=== PATIENT | male | born 1985 | race Caucasian/White ===

== ENCOUNTER 2018-01-05 06:16 | Emergency (ER) | payer MEDICAID ==
[2018-01-05 06:18] VITALS: BP 135/90
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
== END 2018-01-05 07:50 | disposition home or self-care (01) ==
LOC: VM.ED 06:16
DX: S09.90XA Unspecified injury of head, initial encounter (principal); Y09 Assault by unspecified means; Z79.899 Other long term (current) drug therapy
CPT/HCPCS: 70450; 72125; 99284

== ENCOUNTER 2018-01-10 10:19 | Emergency (ER) | payer MEDICAID ==
[2018-01-10 10:36] VITALS: BP 108/53
[2018-01-10] MEDS ORDERED: Lidocaine 1% with EPINEPHrine 1:100,000 20 ML MDV INFILT ONE (10:51)
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
[2018-01-10] MEDS ORDERED: cefTRIAXone 1 GM Vial IM ONE (11:13)
[2018-01-10] MEDS ORDERED: traMADol 50 MG Tab PO ONE (11:13)
[2018-01-10] MEDS ORDERED: Take Home: traMADol 50 MG, 4 Tab Pack PO ONE (11:17)
[2018-01-10] MEDS ORDERED: Sulfamethoxazole/Trimethoprim 400-80 MG Tab PO ONE (11:18)
[2018-01-10] MEDS ORDERED: Take Home: Sulfamethoxazole/Trimethoprim 800-160 MG Tab, 2 Tab Pack PO ONE (11:19)
[2018-01-10] MEDS ORDERED: Vancomycin 2 GM in Sodium Chloride 0.9% 500 ML IV ONE (11:49)
[2018-01-10 12:54] LABS: CHLORIDE,CL 104 mmol/L (98-107); SODIUM,NA 140 mmol/L (136-145)
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
== END 2018-01-10 14:06 | disposition short-term general hospital (02) ==
LOC: VM.ED 10:19
DX: L03.115 Cellulitis of right lower limb (principal); F41.9 Anxiety disorder, unspecified; F17.210 Nicotine dependence, cigarettes, uncomplicated; Z79.899 Other long term (current) drug therapy
CPT/HCPCS: 10060; 36415; 73560; 73610; 80053; 83605; 85025; 86140; 87040; 87070; 87077; 87205; 96365; 96366; 99284; A9270; J0696; J3370; J7040

== ENCOUNTER 2018-01-12 22:35 | Emergency (ER) | payer MEDICAID ==
[2018-01-12] MEDS ORDERED: Sulfamethoxazole/Trimethoprim 800-160 MG Tab PO ONE (23:12)
[2018-01-12] MEDS ORDERED: Ondansetron 4 MG Tab.DIS PO ONE (23:13)
--- NOTE | 2018-01-12 23:19 | EDM.PDOC ---
ED HPI GENERAL MEDICAL PROBLEM - General Chief Complaint: Headache Stated Complaint: headache, nausea, photosensitivity, possible adverse drug reaction Time Seen by Provider: 01/12/18 22:52 Source of Information: Reports: Patient History Limitations: Reports: No Limitations - History of Present Illness INITIAL COMMENTS - FREE TEXT/NARRATIVE: Patient arrives with complaints of headache, light sensitivity, nausea, vomiting , dry mouth, chills and dizziness about 30 minutes after taking a doxycycline he was prescribed today. Patient was seen in this ED on the 2 days ago. He was transferred to [place] to rule out septic arthritis. Patient was discharged today from [facility] in [place] and started on oral Doxycycline. He took this about 1 1/2 hours ago for the first time. He is being treated for cellulitis of the right leg. He denies chest pain or shortness of breath. Onset: Today Onset Date: 01/12/18 Onset Time: 21:00 Location: Reports: Head Associated Symptoms: Reports: Headaches, Nausea/Vomiting - Related Data Allergies Allergy/AdvReac Type Severity Reaction Status Date / Time doxycycline Allergy Headache Verified 01/12/18 23:24 Home Meds: Home Meds Doxycycline [Vibramycin] 100 mg PO BID 01/12/18 [History] Naproxen 375 mg PO BID 01/12/18 [History] Past Medical History - Past Surgical History HEENT Surgical History: Reports: Other (See Below), Oral Surgery GI Surgical History: Reports: Hernia, Inguinal Social & Family History - Tobacco Use Smoking Status *Q: Unknown Ever Smoked Years of Tobacco use: 16 Packs/Tins Daily: 1 - Recreational Drug Use Recreational Drug Use: Yes Drug Use in Last 12 Months: Yes Recreational 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, Methamphetamine ED ROS GENERAL - Review of Systems Review Of Systems: See Below Constitutional: Reports: Chills HEENT: Reports: No Symptoms, Other (light sensitivity, dry mouth) Respiratory: Reports: No Symptoms Cardiovascular: Reports: No Symptoms Endocrine: Reports: No Symptoms GI/Abdominal: Reports: Nausea, Vomiting Musculoskeletal: Reports: No Symptoms Skin: Reports: No Symptoms Neurological: Reports: Dizziness Psychiatric: Reports: No Symptoms, Anxiety Hematologic/Lymphatic: Reports: No Symptoms Immunologic: Reports: No Symptoms - Physical Exam Exam: See Below Exam Limited By: No Limitations General Appearance: Alert, WD/WN, No Apparent Distress, Anxious Eye Exam: Bilateral Eye: EOMI, Normal Fundi, Normal Inspection Ears: Normal External Exam, Normal Canal, Hearing Grossly Normal, Normal TMs Nose: Normal Inspection, Normal Mucosa, No Blood Throat/Mouth: Normal Inspection, Normal Lips, Normal Teeth, Normal Gums, Normal Oropharynx, Normal Voice, No Airway Compromise Head Exam: Atraumatic, Normocephalic Neck: Normal Inspection, Supple, Non-Tender, Full Range of Motion Respiratory/Chest: No Respiratory Distress, Lungs Clear, Normal Breath Sounds, No Accessory Muscle Use, Chest Non-Tender Cardiovascular: Normal Peripheral Pulses, Regular Rate, Rhythm, No Edema, No Gallop, No JVD, No Murmur, No Rub GI/Abdominal: Normal Bowel Sounds, Soft, Non-Tender, No Organomegaly, No Distention, No Abnormal Bruit, No Mass Neuro Exam (Abbreviated): Alert, Oriented, CN II-XII Intact, Normal Cognition, Normal Gait, Normal Reflexes, No Motor/Sensory Deficits Extremities: Normal Inspection, Normal Range of Motion, Normal Capillary Refill Psychiatric: Anxious Skin Exam: Warm, Dry, Intact, Normal Color, No Rash, Erythema (right lower extremity), Tattoo(s) (multiple), Other (Slight erythema noted to right leg. 1+ pitting edema noted to the right lower extremity, however, patient does state this is improved from previous. Bilateral pedal pulses +2. ) Course - Vital Signs Last Recorded V/S: Last Vital Signs Temp 35.1 C L 01/12/18 22:35 Pulse 63 01/12/18 22:35 Resp 28 H 01/12/18 22:35 BP 136/83 01/12/18 22:35 Pulse Ox 100 01/12/18 22:35 - Orders/Labs/Meds Meds: Medications Discontinued Medications Generic Name Dose Route Start Last Admin Trade Name Freq PRN Reason Stop Dose Admin Ondansetron HCl 4 mg 01/12/18 23:13 01/12/18 23:31 Zofran Odt PO 01/12/18 23:14 4 mg ONETIME ONE Administration Trimethoprim/Sulfamethoxazole 2 tab 01/12/18 23:12 01/12/18 23:42 Septra Ds PO 01/12/18 23:13 2 tab ONETIME ONE Administration - Re-Assessments/Exams Free Text/Narrative Re-Assessment/Exam: 01/13/18 01:11 adverse reaction to doxycycline. started on bactrim ds Departure - Departure Time of Disposition: 23:05 Disposition: Home, Self-Care 01 Condition: Good Clinical Impression: Adverse drug reaction - Discharge Information Instructions: Sulfamethoxazole; Trimethoprim, SMX-TMP tablets Referrals: Andrew Thao MD [Primary Care Provider] - Forms: ED Department Discharge Additional Instructions: You appear to have had an allergic reaction to the doxycycline. Let your other medical providers know this. I prescribed Bactrim for you this evening. Take 2 tablets twice daily for 10 days. Please finish these even if you are feeling better. Stay well hydrated. If you have any questions or concerns, please call us at the hospital at any time. - Problem List & Annotations (1) Cellulitis SNOMED Code(s): 240923622 Code(s): L03.90 - CELLULITIS, UNSPECIFIED Status: Acute Priority: Medium Current Visit: No Qualifiers: Site of cellulitis: extremity Site of cellulitis of extremity: lower extremity Laterality: right Qualified Code(s): L03.115 - Cellulitis of right lower limb - Problem List Review Problem List Initiated/Reviewed/Updated: Yes - Assessment/Plan Assessment:: Adverse drug reaction Plan: You appear to have had an allergic reaction to the doxycycline. Let your other medical providers know this. I prescribed Bactrim for you this evening. Take 2 tablets twice daily for 10 days. Please finish these even if you are feeling better. Stay well hydrated. If you have any questions or concerns, please call us at the hospital at any time.
[2018-01-12 23:22] VITALS: BP 136/83
== END 2018-01-13 00:08 | disposition home or self-care (01) ==
LOC: VM.ED 22:35
DX: G44.40 Drug-induced headache, not elsewhere classified, not intractable (principal); R11.2 Nausea with vomiting, unspecified; R42 Dizziness and giddiness; T36.4X5A Adverse effect of tetracyclines, initial encounter; Z88.1 Allergy status to other antibiotic agents
CPT/HCPCS: 99283; A9270-GY